=== PATIENT | female | born 1965 | race American Indian/Alaskan Native ===

== ENCOUNTER 2017-10-19 05:26 | Emergency (ER) | payer OTHER ==
--- NOTE | 2017-10-19 07:33 | Emergency Department Report ---
ED Lower Extremity HPI - General Chief Complaint: Extremity Injury, Lower Stated Complaint: RT LEG SORE/PAIN Time Seen by Provider: 10/19/17 07:25 Source: patient Mode of arrival: Ambulatory Limitations: No Limitations - History of Present Illness Initial Comments: This is a 51-year-old female here report that she has right upper leg pain 2 weeks. Denies any injury. Denies any history of back pain. She said the pain feels like nerve pain and is coming from her right buttocks down to her right leg. Pain is 7 out of 10 and worse with movement of the wrist then and no medication taken. MD Complaint: other (pain to buttocks and right lower extremity) Onset/Timin -: week(s) Injury: Hip: Right, Pelvis: Right, Thigh: Right Type of Injury: unknown Place: home Severity: severe Severity scale (0 -10): 7 Improves With: rest Worsens With: weight bearing, movement, palpation Context: walking Associated Symptoms: ambulatory. denies: snap/pop sensation, swelling, numbness , tingling, unable to bear weight, able to partially bear weight Treatments Prior to Arrival: other (none) - Related Data Previous Rx's Medication Instructions Recorded Last Taken Type Ibuprofen [Motrin 800 MG tab] 800 mg PO Q8HR PRN #30 tablet 09/15/15 Unknown Rx Cyclobenzaprine [Flexeril 10 MG 10 mg PO TID PRN #20 tablet 12/22/16 Unknown Rx TAB] Hydrocortisone 1% [Hydrocortisone 1 applicatio TP TID #1 tube 12/22/16 Unknown Rx 1% CREAM] diphenhydrAMINE [Benadryl CAP] 25 mg PO QHS PRN #30 capsule 12/22/16 Unknown Rx Ibuprofen [Motrin] 800 mg PO Q8HR PRN #15 tablet 10/19/17 Unknown Rx Allergies Allergy/AdvReac Type Severity Reaction Status Date / Time No Known Allergies Allergy Verified 09/14/15 23:59 ED Review of Systems ROS: Stated complaint: RT LEG SORE/PAIN Other details as noted in HPI Constitutional: denies: chills, fever Eyes: denies: eye pain, eye discharge, vision change ENT: denies: ear pain, throat pain, congestion Respiratory: denies: cough, shortness of breath, SOB with exertion, SOB at rest , stridor, wheezing Cardiovascular: denies: chest pain, palpitations, dyspnea on exertion, edema, syncope, paroxysmal nocturnal dyspnea Gastrointestinal: denies: abdominal pain, nausea, vomiting, diarrhea, constipation Genitourinary: denies: urgency, dysuria, frequency, hematuria, discharge Musculoskeletal: joint swelling, arthralgia. denies: back pain, myalgia Skin: denies: rash, lesions Neurological: denies: headache, weakness, numbness, paresthesias, confusion, abnormal gait, vertigo ED Past Medical Hx - Past Medical History Previous Medical History?: Yes Additional medical history: Goiter - Surgical History Past Surgical History?: Yes Additional Surgical History: Neck - Family History Family history: hypertension - Social History Smoking Status: Never Smoker Substance Use Type: None - Medications Home Medications: Home Medications Medication Instructions Recorded Confirmed Last Taken Type Ibuprofen [Motrin 800 MG tab] 800 mg PO Q8HR PRN #30 tablet 09/15/15 Unknown Rx Cyclobenzaprine [Flexeril 10 MG 10 mg PO TID PRN #20 tablet 12/22/16 Unknown Rx TAB] Hydrocortisone 1% [Hydrocortisone 1 applicatio TP TID #1 tube 12/22/16 Unknown Rx 1% CREAM] diphenhydrAMINE [Benadryl CAP] 25 mg PO QHS PRN #30 capsule 12/22/16 Unknown Rx Ibuprofen [Motrin] 800 mg PO Q8HR PRN #15 tablet 10/19/17 Unknown Rx ED Physical Exam - General Limitations: No Limitations General appearance: alert, in no apparent distress - Head Head exam: Present: atraumatic, normocephalic, normal inspection - Eye Eye exam: Present: normal appearance, PERRL, EOMI. Absent: nystagmus Pupils: Present: normal accommodation - ENT ENT exam: Present: normal exam, normal orophraynx, mucous membranes moist, TM's normal bilaterally, normal external ear exam - Neck Neck exam: Present: normal inspection, full ROM. Absent: tenderness, lymphadenopathy - Respiratory Respiratory exam: Present: normal lung sounds bilaterally. Absent: respiratory distress, chest wall tenderness - Cardiovascular Cardiovascular Exam: Present: regular rate, normal rhythm, normal heart sounds. Absent: systolic murmur, diastolic murmur - GI/Abdominal GI/Abdominal exam: Present: soft, normal bowel sounds. Absent: distended, tenderness, guarding, rebound, rigid, organomegaly - Extremities Exam Extremities exam: Present: normal inspection, full ROM, normal capillary refill , other (No cce. + 2 pulses in all extremities, no neurovascular compromise.). Absent: tenderness, pedal edema, joint swelling, calf tenderness - Back Exam Back exam: Present: normal inspection, other (ambulates without any difficulties ). Absent: full ROM, tenderness, CVA tenderness (R), CVA tenderness (L), muscle spasm, paraspinal tenderness, vertebral tenderness, rash noted - Expanded Back Exam Expanded Back exam: Absent: saddle anesthesia Back exam: Negative Straight Leg Raising: Left, Right - Neurological Exam Neurological exam: Present: alert, oriented X3, normal gait, reflexes normal, other (no focal neurological deficits). Absent: motor sensory deficit - Psychiatric Psychiatric exam: Present: normal affect, normal mood - Skin Skin exam: Present: warm, dry, intact, normal color. Absent: rash ED Course Vital Signs 10/19/17 06:14 Temperature 98.9 F Pulse Rate 83 Respiratory 18 Rate Blood Pressure 120/61 O2 Sat by Pulse 99 Oximetry - Reevaluation(s) Reevaluation #1: 10/19/17 09:07 Patient refused pain medication ED Lower Extremity MDM - Radiology Data Radiology results: report reviewed Findings [facility] [address] [place] [address] XRay Report Signed Patient: THADDEUS RHODES MR#: [id number] : 1965 Acct:[id number] Age/Sex: 51 / F ADM Date: 10/19/17 Loc: ED Attending Dr: Ordering Physician: SLOAN LINDQUIST Date of Service: 10/19/17 Procedure(s): XR spine lumbosacral 2-3V Accession Number(s): [id number] cc: SLOAN LINDQUIST Fluoro Time In Minutes: Lumbar spine 3 views: Next History: Pain in lower back. Findings: Scoliosis of lumbar spine with convexity to right. Normal height of vertebral bodies. Decrease in height of L3-L4, L4-L5 and L5-S1. Sclerotic articular surfaces a peripheral osteophyte suggesting degenerative changes. No fracture. No soft tissue opacification. Impression: Degenerative lumbar spine. Transcribed By: PTP Dictated By: MADHURI GONZALEZ MD Electronically Authenticated By: MADHURI GONZALEZ MD Signed Date/Time: 10/19/17752 DD/ 1 TD/TT: 10/19/17752 - Medical Decision Making This is a 51-year-old female here report that she is having right lower extremity pain for 2 weeks without any injuries. Patient was seen and examined and physical exam is normal, she is neurologically intact and back exam is normal. X-ray of lumbar spine revealed multilevel disc disease. This was dictated by radiologist and report reviewed by myself. I discussed the patient her diagnosis and treatment plan and also x- ray findings and told her that she will need to go to orthopedic doctor for follow-up for degenerative disc disease of her spine. She refused pain medication in emergency room. Discharged home in stable condition with prescription for Motrin. She is to follow-up with orthopedic doctor in 4 days. Critical care attestation.: If time is entered above; I have spent that time in minutes in the direct care of this critically ill patient, excluding procedure time. ED Disposition Clinical Impression: Arthralgia of right lower leg, Lumbar disc disease with radiculopathy Disposition: - TO HOME OR SELFCARE Is pt being admited?: No Does the pt Need Aspirin: No Condition: Stable Instructions: Arthralgia (ED), Lumbar Radiculopathy (ED) Additional Instructions: Follow-up with orthopedic doctor as instructed Take Motrin for pain. Please take this with food as well as medication caused irritation to his stomach. Referrals: PRIMARY CARE, [Primary Care Provider] - 3-5 Days ZOYA TORRES MD [Staff Physician] - 3-[address] [facility] [Outside] - 3-5 Days Forms: Work/School Release Form(ED)
[2017-10-19] MEDS ORDERED: DECADRON IM ONE (07:34)
[2017-10-19] MEDS ORDERED: TORADOL IM ONE (07:34)
--- NOTE | 2017-10-19 08:11 | XRay Report ---
Lumbar spine 3 views: Next History: Pain in lower back. Findings: Scoliosis of lumbar spine with convexity to right. Normal height of vertebral bodies. Decrease in height of L3-L4, L4-L5 and L5-S1. Sclerotic articular surfaces a peripheral osteophyte suggesting degenerative changes. No fracture. No soft tissue opacification. Impression: Degenerative lumbar spine.
[2017-10-19 09:17] VITALS: BP 124/67
== END 2017-10-19 09:22 | disposition home or self-care (01) ==
LOC: ED 05:26
DX: M79.604 Pain in right leg (principal); M54.16 Radiculopathy, lumbar region; X58.XXXA Exposure to other specified factors, initial encounter; Y93.01 Activity, walking, marching and hiking; Y92.098 Other place in other non-institutional residence as the place of occurrence of the external cause; Y99.8 Other external cause status
CPT/HCPCS: 72100; 99283; J1100; J1885

== ENCOUNTER 2019-06-10 14:40 | Outpatient (CLI) | payer OTHER ==
--- NOTE | 2019-06-10 15:42 | Mammography Report ---
DIGITAL SCREENING MAMMOGRAM WITH CAD, 06/10/2019 INDICATION: Routine screening mammography. TECHNIQUE: Digital bilateral 2D mammography was obtained in the craniocaudal and mediolateral obliq ue projections. This examination was interpreted with the benefit of Computer-Aided Detection analysi s. COMPARISON: Baseline mammogram. FINDINGS: Breast Density: The breasts are heterogeneously dense, which may obscure small masses. There is no evidence of dominant mass, suspicious calcifications or architectural distortion in eithe r breast. A right Port-A-Cath port is visualized. IMPRESSION: Follow up recommendation: Routine yearly BI-RADS Category 1: Negative. A "normal" or negative report should not discourage follow up or biopsy of a clinically significant f inding. A written summary of these findings will be mailed to the patient. The patient will be entered into a mammography reporting system which will generate a reminder letter for the patient's next appointmen t at the appropriate interval. The [employer] recommends yearly mammograms starting at age 40 and continuing as l mian as a woman is in good health. Breast MRI is recommended for women with an approximate 20-25% or greater lifetime risk of breast cancer, including women with a strong family history of breast or ova ivon cancer or who have been treated for Hodgkin's disease. Signer Name: Krzysztof Coker MD Signed: 06/10/2019 3:38 PM Workstation Name: [id number]
== END 2019-06-10 14:41 | disposition home or self-care (01) ==
LOC: MAMMO 14:40
PROVIDERS: ATTEND Internal Medicine Hematology & Oncology
DX: Z12.31 Encounter for screening mammogram for malignant neoplasm of breast (principal); N64.89 Other specified disorders of breast
CPT/HCPCS: 77067

== ENCOUNTER 2020-02-22 20:40 | Emergency (ER) | payer OTHER ==
[2020-02-22 21:12] VITALS: BP 123/65
--- NOTE | 2020-02-22 23:43 | Emergency Department Report ---
HPI - General Chief Complaint: Dyspnea/Respdistress PUI?: Yes Time Seen by Provider: 02/22/20 23:22 - HPI HPI: Room 3 The patient is a 54-year-old female present with a chief complaint of leg pain and cough. Patient states for approximately 1 week she has had pain and swelling in the right knee and lower extremity. Patient also complains of back pain. Patient states for the past 2 to 3 days she has had a cough has been no nproductive. Patient denies history of fever. Patient denies recent trauma. Of note the patient has multiple family members she has been in contact with who are Covid positive ED Past Medical Hx - Past Medical History Previous Medical History?: Yes Additional medical history: Goiter - Surgical History Past Surgical History?: Yes Additional Surgical History: Neck. goiter removal - Family History Family history: no significant - Social History Smoking Status: Never Smoker Substance Use Type: None (Denies illicit drug use) - Medications Home Medications: Home Medications Medication Instructions Recorded Confirmed Last Taken Type Levothyroxine [Synthroid] 112 mcg PO QAM 01/24/18 01/24/18 01/23/18 History Cyclobenzaprine [Flexeril] 10 mg PO TID PRN #10 tablet 02/23/20 Unknown Rx Naproxen [Naprosyn] 500 mg PO BID #20 tablet 02/23/20 Unknown Rx ED Review of Systems ROS: Stated complaint: PAIN IN LEG/BACK/ABDOMINAL EXPOSE TO COVID Other details as noted in HPI Constitutional: denies: fever Eyes: denies: eye pain ENT: denies: throat pain Respiratory: cough, SOB with exertion Cardiovascular: denies: chest pain Endocrine: no symptoms reported Gastrointestinal: denies: abdominal pain Genitourinary: denies: dysuria Musculoskeletal: back pain Neurological: denies: headache Physical Exam - Physical Exam Vital Signs: Vital Signs 02/22/20 21:11 Temperature 98.1 F Pulse Rate 79 Respiratory 16 Rate Blood Pressure 123/65 O2 Sat by Pulse 97 Oximetry Physical Exam: GENERAL: The patient is well-developed well-nourished female lying on stretcher not appearing to be in acute distress. [] HEENT: Normocephalic. Atraumatic. Extraocular motions are intact. Patient has moist mucous membranes. NECK: Supple. Trachea midline CHEST/LUNGS: Clear to auscultation. There is no respiratory distress noted. HEART/CARDIOVASCULAR: Regular. There is no tachycardia. There is no gallop rub or murmur. ABDOMEN: Abdomen is soft, nontender. Patient has normal bowel sounds. There is no abdominal distention. SKIN: There is no rash. There is no edema. There is no diaphoresis. NEURO: The patient is awake, alert, and oriented. The patient is cooperative. The patient has no focal neurologic deficits. The patient has normal speech MUSCULOSKELETAL: There is tenderness to palpation of the right knee and calf. There is no evidence of acute injury. ED Course Vital Signs 02/22/20 21:11 Temperature 98.1 F Pulse Rate 79 Respiratory 16 Rate Blood Pressure 123/65 O2 Sat by Pulse 97 Oximetry ED Medical Decision Making - Lab Data Result diagrams: 02/23/20 00:12 02/23/20 00:12 Laboratory Tests 02/23/20 02/23/20 02/23/20 00:12 00:12 00:12 WBC 4.5 RBC 3.80 Hgb 12.3 Hct 35.2 MCV 93 MCH 32 MCHC 35 H RDW 12.8 L Plt Count 263 Lymph % (Auto) 33.5 [place] % (Auto) 10.7 H Eos % (Auto) 1.7 Baso % (Auto) 0.4 Lymph # (Auto) 1.5 [place] # (Auto) 0.5 Eos # (Auto) 0.1 Baso # (Auto) 0.0 Seg Neutrophils % 53.7 Seg Neutrophils # 2.4 D-Dimer 580.22 H Sodium 140 Potassium 3.7 Chloride 102.8 Carbon Dioxide 27 Anion Gap 14 BUN 8 Creatinine 0.7 Estimated GFR > 60 BUN/Creatinine Ratio 11 Glucose 93 Calcium 9.2 NT-Pro-B Natriuret Pep < 5 - Radiology Data Radiology results: report reviewed (Right lower extremity Doppler, CT chest), image reviewed (Right lower extremity Doppler, CT chest) Findings [facility] [address] [place] [address] [facility] cular Lab Report Signed Patient: THADDEUS RHODES MR#: [id number] : 1965 Acct:[id number] Age/Sex: 54 / F ADM Date: 02/22/20 Loc: ED Attending Dr: Ordering Physician: CRISTOBAL RICHARDSON MD Date of Service: 02/22/20 Procedure(s): VL venous duplex LE RT Accession Number(s): [id number] cc: CRISTOBAL RICHARDSON MD VL venous duplex LE RT INDICATION / CLINICAL INFORMATION: Right leg pain and swelling. TECHNIQUE: Duplex doppler imaging was performed using venous compression and other maneuvers. COMPARISON: None available. FINDINGS: No venous thrombosis is identified within the visualized extremity vasculature. ADDITIONAL FINDINGS: None. IMPRESSION: 1. No sonographic evidence for DVT in the visualized right lower extremity vasculature. Signer Name: Nelson Lucas MD Signed: 02/23/2020 12:21 AM Workstation Name: [id number] Transcribed By: CS Dictated By: Nelson Lucas MD Electronically Authenticated By: Nelson Lucas MD Signed Date/Time: 02/23/2020 DD/ TD/TT: Findings [facility] [address] [place] [address] Cat Scan Report Signed Patient: THADDEUS RHODES MR#: [id number] : 1965 Acct:[id number] Age/Sex: 54 / F ADM Date: 02/22/20 Loc: ED Attending Dr: Ordering Physician: CRISTOBAL RICHARDSON MD Date of Service: 02/23/20 Procedure(s): CT angio chest Accession Number(s): [id number] cc: CRISTOBAL RICHARDSON MD CT angio chest INDICATION / CLINICAL INFORMATION: Shortness of breath. TECHNIQUE: Axial CT images were obtained through the chest after injection of IV contrast. 3 plane MIP and/or 3D reconstructions were produced. All CT scans at this location are performed using CT dose red uction for ALARA by means of automated exposure control. COMPARISON: None available. FINDINGS: PULMONARY ARTERIES: No pulmonary emboli. HEART: No significant abnormality. MEDIASTINUM / [place]EN[place]: No significant abnormality. LUNGS: Lungs are clear No pleural effusion. No pneumothorax. ADDITIONAL FINDINGS: None. UPPER ABDOMEN: No acute findings. SKELETAL STRUCTURES: No significant osseous abnormality. IMPRESSION: 1. No CT evidence for pulmonary embolism. 2. No acute findings. Signer Name: Nelson Lucas MD Signed: 02/23/2020 1:48 AM Workstation Name: [id number] Transcribed By: CS Dictated By: Nelson Lucas MD Electronically Authenticated By: Nelson Lucas MD Signed Date/Time: 02/23/20147 DD/ 6 TD/TT: - Differential Diagnosis Pneumonia, myalgia, DVT, PE, CHF, bronchitis Critical care attestation.: If time is entered above; I have spent that time in minutes in the direct care of this critically ill patient, excluding procedure time. ED Disposition Clinical Impression: Right knee pain, Back pain Disposition: TO HOME OR SELFCARE Is pt being admited?: No Does the pt Need Aspirin: No Condition: Stable Instructions: Acute Knee Pain, Adult Additional Instructions: Return to the emergency department should you develop worsening symptoms, inability to tolerate food or liquids, high fever or any other concerns Prescriptions: Cyclobenzaprine [Flexeril] 10 mg PO TID PRN #10 tablet PRN Reason: Muscle Spasm Naproxen [Naprosyn] 500 mg PO BID #20 tablet Referrals: PRIMARY CAREMD [Primary Care Provider] - 3-[address] [facility] [Provider Group] - 3-5 Days Time of Disposition: 01:
--- NOTE | 2020-02-23 00:26 | Vascular Lab Report ---
VL venous duplex LE RT INDICATION / CLINICAL INFORMATION: Right leg pain and swelling. TECHNIQUE: Duplex doppler imaging was performed using venous compression and other maneuvers. COMPARISON: None available. FINDINGS: No venous thrombosis is identified within the visualized extremity vasculature. ADDITIONAL FINDINGS: None. IMPRESSION: 1. No sonographic evidence for DVT in the visualized right lower extremity vasculature. Signer Name: Nelson Lucas MD Signed: 02/23/2020 12:21 AM Workstation Name: [id number]
[2020-02-23 00:38] LABS: Basophils % (Auto) 0.4 % (0.0-1.8); Eosinophils # (Auto) 0.1 K/mm3 (0.0-0.4); Eosinophils % (Auto) 1.7 % (0.0-4.3); Hematocrit 35.2 % (30.3-42.9); Hemoglobin 12.3 gm/dl (10.1-14.3); Lymphocytes # (Auto) 1.5 K/mm3 (1.2-5.4); Lymphocytes % (Auto) 33.5 % (13.4-35.0); Mean Corpuscular HGB Conc 35 % (30-34); Mean Corpuscular Volume 93 fl (79-97); Monocytes # (Auto) 0.5 K/mm3 (0.0-0.8); Monocytes % (Auto) 10.7 % (0.0-7.3); Platelet Count 263 K/mm3 (140-440); Red Cell Distribution Width 12.8 % (13.2-15.2)
[2020-02-23 01:25] LABS: Blood Urea Nitrogen 8 mg/dL (7-17); Calcium 9.2 mg/dL (8.4-10.2); Hemolysis Index 6
[2020-02-23 01:28] LABS: BUN/Creatinine Ratio 11
--- NOTE | 2020-02-23 01:53 | Cat Scan Report ---
CT angio chest INDICATION / CLINICAL INFORMATION: Shortness of breath. TECHNIQUE: Axial CT images were obtained through the chest after injection of IV contrast. 3 plane MIP and/or 3D reconstructions were produced. All CT scans at this location are performed using CT dose reduction f or ALARA by means of automated exposure control. COMPARISON: None available. FINDINGS: PULMONARY ARTERIES: No pulmonary emboli. HEART: No significant abnormality. MEDIASTINUM / [place]EN[place]: No significant abnormality. LUNGS: Lungs are clear No pleural effusion. No pneumothorax. ADDITIONAL FINDINGS: None. UPPER ABDOMEN: No acute findings. SKELETAL STRUCTURES: No significant osseous abnormality. IMPRESSION: 1. No CT evidence for pulmonary embolism. 2. No acute findings. Signer Name: Nelson Lucas MD Signed: 02/23/2020 1:48 AM Workstation Name: [id number]
== END 2020-02-23 02:12 | disposition home or self-care (01) ==
LOC: ED 20:40
DX: M25.561 Pain in right knee (principal); M54.6 Pain in thoracic spine; Z79.899 Other long term (current) drug therapy; Z98.890 Other specified postprocedural states; Z88.8 Allergy status to other drugs, medicaments and biological substances
CPT/HCPCS: 36415; 71275; 80048; 83880; 85025; 85379; 93971; 99284; Q9967